=== PATIENT | male | born 1955 | race Caucasian/White ===

== ENCOUNTER 2020-09-10 08:30 | Emergency (ER) | payer BC ==
--- NOTE | 2020-09-10 09:14 | EDM.PDOC ---
ED HPI GENERAL MEDICAL PROBLEM - General Chief Complaint: General Stated Complaint: bladder Time Seen by Provider: 09/10/20 09:05 Source of Information: Reports: Patient History Limitations: Reports: No Limitations - History of Present Illness INITIAL COMMENTS - FREE TEXT/NARRATIVE: Jose is a 64 year old male with PMH of prostate cancer who presents with urinary retention. Had radioactive implants placed on Saturday. Relates they did put a cath in and drain his bladder before he left that day. Has been voiding since then but only in small amounts every 30 minutes. Yesterday started having more pressure, only going drops by 5 pm or so yesterday. Started noting more discomfort around 0230 and hasn't been able to void since then. He has had obvious hematuria but no gross blood. Is uncomfortable and notes bladder distention. Onset: Gradual Duration: Hour(s):, Getting Worse Location: Reports: Abdomen Quality: Reports: Ache Severity: Moderate Associated Symptoms: Denies: Confusion, Chest Pain, Cough, Fever/Chills, Loss of Appetite, Malaise, Nausea/Vomiting, Shortness of Breath - Related Data Allergies Allergy/AdvReac Type Severity Reaction Status Date / Time bee venom protein (honey bee) Allergy Hives Verified 09/10/20 08:39 Home Meds: Home Meds . [No Known Home Meds] 09/10/20 [History] Past Medical History HEENT History: Reports: Cataract Genitourinary History: Reports: Prostate Disorder Oncologic (Cancer) History: Reports: Prostate - Past Surgical History HEENT Surgical History: Reports: Cataract Surgery Male Surgical History: Reports: Prostate Biopsy Musculoskeletal Surgical History: Reports: Other (See Below) Other Musculoskeletal Surgeries/Procedures:: States having pins and screws placed in neck Social & Family History - Tobacco Use Tobacco Use Status *Q: Never Tobacco User Second Hand Smoke Exposure: No - Caffeine Use Caffeine Use: Reports: Coffee - Alcohol Use Days Per Week of Alcohol Use: 7 Number of Drinks Per Day: 1 Total Drinks Per Week: 7 - Recreational Drug Use Recreational Drug Use: No ED ROS GENERAL - Review of Systems Review Of Systems: See Below Constitutional: Denies: Fever, Chills, Malaise, Weakness, Fatigue, Decreased Appetite HEENT: Reports: No Symptoms Respiratory: Denies: Shortness of Breath Cardiovascular: Denies: Chest Pain Endocrine: Reports: No Symptoms GI/Abdominal: Reports: Abdominal Pain. Denies: Constipation, Diarrhea, Nausea, Vomiting : Reports: Urinary Retention Musculoskeletal: Reports: No Symptoms Skin: Reports: No Symptoms Neurological: Reports: No Symptoms ED EXAM, GENERAL - Physical Exam Exam: See Below Exam Limited By: No Limitations General Appearance: Alert, WD/WN, No Apparent Distress Ears: Normal External Exam, Normal TMs Nose: Normal Inspection, Normal Mucosa, No Blood Throat/Mouth: Normal Inspection, Normal Oropharynx Head: Normocephalic Neck: Normal Inspection, Supple, Non-Tender Respiratory/Chest: No Respiratory Distress, Lungs Clear, Normal Breath Sounds Cardiovascular: Regular Rate, Rhythm GI/Abdominal: Normal Bowel Sounds, Soft, Non-Tender, Other (abdomen is soft and nontender now. Had catheter placed prior to my arrival with 1000 ml of urine out. ) Extremities: Normal Inspection, No Pedal Edema Neurological: Alert, Oriented Skin Exam: Warm, Dry Course - Vital Signs Last Recorded V/S: Last Vital Signs Temp 96.9 F 09/10/20 08:32 Pulse 75 09/10/20 08:32 Resp 20 09/10/20 08:32 BP 157/86 H 09/10/20 08:32 Pulse Ox 96 09/10/20 08:32 - Orders/Labs/Meds Labs: Laboratory Tests 09/10/20 Range/Units 08:42 Urine Color Yellow (YELLOW) Urine Appearance Slightly cloudy (CLEAR) Urine pH 6.5 (4.5-8.0) Ur Specific [place] 1.025 H (1.003-1.020) Urine Protein Negative (NEGATIVE) mg/dL Urine Glucose (UA) Negative (NEGATIVE) mg/dL Urine Ketones Trace H (NEGATIVE) mg/dL Urine Occult Blood Moderate H (NEGATIVE) Urine Nitrite Negative (NEGATIVE) Urine Bilirubin Negative (NEGATIVE) Urine Urobilinogen 0.2 (0.2-1.0) EU/dL Ur Leukocyte Esterase Negative (NEGATIVE) Urine RBC Packed H (0-5) /HPF Urine WBC 0-5 (0-5) /HPF Urine Bacteria Occasional H (NOT SEEN) /HPF Urinalysis Comment - Re-Assessments/Exams Free Text/Narrative Re-Assessment/Exam: 09/10/20 09:16 Patient is doing well now. UA is essentially negative except for blood. Instructions given. Will discharge home with catheter placed. Can switch to leg bag. Advised to contact his doctor on Saturday for further instructions to remove catheter. Departure - Departure Time of Disposition: 09:18 Disposition: Home, Self-Care 01 Condition: Fair Clinical Impression: Urinary retention - Discharge Information *PRESCRIPTION DRUG MONITORING PROGRAM REVIEWED*: No *COPY OF PRESCRIPTION DRUG MONITORING REPORT IN PATIENT VARGAS: No Instructions: Acute Urinary Retention, Male Additional Instructions: 1. push fluids 2. Tylenol for any discomfort 3. Keep catheter in until further instruction from your physician 4. Call with any questions or concerns Sepsis Event Note (ED) - Evaluation Sepsis Screening Result: No Definite Risk - Focused Exam Vital Signs: Vital Signs Temp Pulse Resp BP Pulse Ox 09/10/20 08:32 96.9 F 75 20 157/86 H 96
== END 2020-09-10 09:36 | disposition home or self-care (01) ==
LOC: CC.ED 08:30
DX: R33.9 Retention of urine, unspecified (principal); R10.9 Unspecified abdominal pain; Z85.46 Personal history of malignant neoplasm of prostate; Z91.030 Bee allergy status
CPT/HCPCS: 51702; 81001; 99283-25

== ENCOUNTER 2020-09-18 20:30 | Emergency (ER) | payer BC ==
--- NOTE | 2020-09-18 20:40 | EDM.PDOC ---
ED HPI GENERAL MEDICAL PROBLEM - General Chief Complaint: Genitourinary Problem Stated Complaint: catheter not draining Time Seen by Provider: 09/18/20 20:32 Source of Information: Reports: Patient History Limitations: Reports: No Limitations - History of Present Illness INITIAL COMMENTS - FREE TEXT/NARRATIVE: This patient is a 64 year old male that presents to the ER. Patient reports that on the he had a abdul catheter placed due to urinary retention. Patient has a history of prostate cancer with seeds. Patient reports that today he noticed the catheter was not draining and he started to have some retention with pain again. Patient denies n, v, d, f. Onset: Today Onset Date: 09/18/20 Severity: Moderate Improves with: Reports: None Worsens with: Reports: None Associated Symptoms: Reports: No Other Symptoms. Denies: Fever/Chills, Nausea/Vomiting Bladder Pain Score (Numeric/FACES): 5 - Related Data Allergies Allergy/AdvReac Type Severity Reaction Status Date / Time bee venom protein (honey bee) Allergy Hives Verified 09/10/20 08:39 Home Meds: Home Meds levoFLOXacin [Levaquin] 750 mg PO DAILY #4 tab 09/18/20 [Rx] Past Medical History HEENT History: Reports: Cataract Genitourinary History: Reports: Prostate Disorder Oncologic (Cancer) History: Reports: Prostate - Past Surgical History HEENT Surgical History: Reports: Cataract Surgery Male Surgical History: Reports: Prostate Biopsy Musculoskeletal Surgical History: Reports: Other (See Below) Other Musculoskeletal Surgeries/Procedures:: States having pins and screws placed in neck Social & Family History - Caffeine Use Caffeine Use: Reports: Coffee ED ROS GENERAL - Review of Systems Review Of Systems: See Below Constitutional: Reports: No Symptoms. Denies: Fever, Chills, Malaise, Weakness, Fatigue HEENT: Reports: No Symptoms Respiratory: Reports: No Symptoms Cardiovascular: Reports: No Symptoms Endocrine: Reports: No Symptoms GI/Abdominal: Reports: No Symptoms. Denies: Abdominal Pain, Nausea, Vomiting : Reports: Pain (with retention), Urinary Retention Musculoskeletal: Reports: No Symptoms Skin: Reports: No Symptoms Neurological: Reports: No Symptoms Psychiatric: Reports: No Symptoms Hematologic/Lymphatic: Reports: No Symptoms Immunologic: Reports: No Symptoms ED EXAM, RENAL/ - Physical Exam Exam: See Below Exam Limited By: No Limitations General Appearance: Alert, WD/WN, No Apparent Distress Respiratory/Chest: No Respiratory Distress, Lungs Clear, Normal Breath Sounds, No Accessory Muscle Use Cardiovascular: Normal Peripheral Pulses, Regular Rate, Rhythm, No Edema GI/Abdominal: Soft, Non-Tender, No Distention (Male) Exam: Suprapubic Fullness Back Exam: Normal Inspection. No: CVA Tenderness (L), CVA Tenderness (R) Extremities: Normal Inspection Neurological: Alert, Oriented Psychiatric: Normal Affect, Normal Mood Skin Exam: Warm, Dry, Intact, Normal Color, No Rash Course - Vital Signs Last Recorded V/S: Last Vital Signs Temp 100 F 09/18/20 20:31 Pulse 82 09/18/20 20:31 Resp 18 09/18/20 20:31 BP 143/78 H 09/18/20 20:31 Pulse Ox 99 09/18/20 20:31 - Orders/Labs/Meds Orders: Active Orders 24 hr Category Date Time Status CULTURE URINE [RM] Stat Lab 09/18/20 21:07 Received Labs: Laboratory Tests 09/18/20 Range/Units 20:32 Urine Color Dark yellow (YELLOW) Urine Appearance Turbid (CLEAR) Urine pH >= 9.0 H (4.5-8.0) Ur Specific [place] 1.020 (1.003-1.020) Urine Protein >=300 H (NEGATIVE) mg/dL Urine Glucose (UA) Negative (NEGATIVE) mg/dL Urine Ketones Negative (NEGATIVE) mg/dL Urine Occult Blood Large H (NEGATIVE) Urine Nitrite Positive H (NEGATIVE) Urine Bilirubin Negative (NEGATIVE) Urine Urobilinogen 0.2 (0.2-1.0) EU/dL Ur Leukocyte Esterase Small H (NEGATIVE) Urine RBC 20-30 H (0-5) /HPF Urine WBC 50-75 H (0-5) /HPF Ur Squamous Epith Cells Not seen (NOT SEEN) /HPF Urine Bacteria Many H (NOT SEEN) /HPF Meds: Medications Discontinued Medications Generic Name Dose Route Start Last Admin Trade Name Freq PRN Reason Stop Dose Admin Levofloxacin 750 mg 09/18/20 20:55 09/18/20 21:09 Levaquin PO 09/18/20 20:56 750 mg ONETIME ONE Administration Departure - Departure Time of Disposition: 20:59 Disposition: Home, Self-Care 01 Condition: Fair Clinical Impression: UTI, Urinary tract infectious disease - Discharge Information *PRESCRIPTION DRUG MONITORING PROGRAM REVIEWED*: Not Applicable *COPY OF PRESCRIPTION DRUG MONITORING REPORT IN PATIENT VARGAS: Not Applicable Prescriptions: levoFLOXacin [Levaquin] 750 mg PO DAILY #4 tab Instructions: Indwelling Urinary Catheter Care, Adult, Urinary Tract Infection, Adult, [id number] Referrals: PCP,None [Primary Care Provider] - Forms: ED Department Discharge Additional Instructions: Followup with your primary care provider as scheduled Return to the ER for worsening of condition or any emergent concerns Levaquin 750mg 1 pill once a day for 5 days #4, given #1 in ER. Sent to [facility]. Sepsis Event Note (ED) - Evaluation Sepsis Screening Result: No Definite Risk - Focused Exam Vital Signs: Vital Signs Temp Pulse Resp BP Pulse Ox 09/18/20 20:31 100 F 82 18 143/78 H 99 - My Orders Last 24 Hours: My Active Orders 09/18/20 21:07 CULTURE URINE [RM] Stat - Assessment/Plan Last 24 Hours: My Active Orders 09/18/20 21:07 CULTURE URINE [RM] Stat Plan: PLEASE SEE RN NOTE FOR PFSH
[2020-09-18] MEDS ORDERED: Levofloxacin 500 MG Tab PO ONE (20:55)
== END 2020-09-18 21:50 | disposition home or self-care (01) ==
LOC: CC.ED 20:30
DX: N39.0 Urinary tract infection, site not specified (principal); Z91.030 Bee allergy status
CPT/HCPCS: 51702; 81001; 87086; 87088; 87186; 99283-25; A9270-GY